=== PATIENT | female | born 1990 | race Caucasian/White ===

== ENCOUNTER 2021-05-19 20:06 | Emergency (ER) | payer OTHER ==
[~2021-05-19] VITALS: Ht 157.5 cm; Wt 61.2 kg
[2021-05-19 21:50] LABS: URINE BILIRUBIN NEGATIVE (Negative); URINE BLOOD NEGATIVE (Negative); URINE CLARITY CLEAR; URINE COLOR YELLOW; URINE GLUCOSE-RANDOM NEGATIVE (Negative); URINE KETONES TRACE (Negative); URINE LEUKOCYTES-REFLEX NEGATIVE (Negative); URINE NITRITE-REFLEX NEGATIVE (Negative); URINE PROTEIN NEGATIVE (Negative); URINE SPECIFIC GRAVITY >= 1.030 (1.005-1.030)
[2021-05-19 22:27] LABS: ABSOLUTE BASOPHILS 0.1 thou/uL (0.0-0.2); ABSOLUTE EOSINOPHILS 0.2 thou/uL (0.0-0.7); ABSOLUTE LYMPHOCYTES 2.4 thou/uL (0.8-5.3); ABSOLUTE MONOCYTES 0.4 thou/uL (0.0-1.2); BASOPHILS 1.4 %; EOSINOPHILS 3.9 %; HEMOGLOBIN 11.5 gm/dL (12.0-15.0); LYMPHOCYTES 39.2 %; MCH 24.3 pg (26.0-34.0); MCHC 31.1 g/dL (28.0-37.0); MONOCYTES 6.6 %; MPV 7.6 fl. (7.2-11.1); NUCLEATED RBCS 0 /100WBC; PLATELET COUNT* 330 thou/uL (150-400); POLYS 48.9 %; RBC 4.74 mil/uL (4.20-5.00); WBC 6.1 thou/uL (4.0-11.0)
[2021-05-19 22:34] LABS: POTASSIUM 3.6 mmol/L (3.5-5.1)
[2021-05-20 00:42] VITALS: BP 114/78
== END 2021-05-20 00:42 | disposition home or self-care (01) ==
LOC: M.ERS 20:06
PROVIDERS: Emergency Medicine
DX: O26.891 Other specified pregnancy related conditions, first trimester (principal); R10.32 Left lower quadrant pain; Z3A.01 Less than 8 weeks gestation of pregnancy